=== PATIENT | female | born 1930 | race Caucasian/White ===

== ENCOUNTER 2016-08-10 14:05 | Emergency (ER) | payer MEDICARE ==
[2016-08-10] MEDS ORDERED: LOVASTATIN40 M2 PO (14:12)
[2016-08-10] MEDS ORDERED: NORVASC10 M2 PO (14:12)
[2016-08-10] MEDS ORDERED: OS-CAL 500+D31 EAC1 PO (14:13)
== END 2016-08-10 15:55 ==
LOC: EDMED 14:05
DX: R22.41 Localized swelling, mass and lump, right lower limb (principal); R60.0 Localized edema; I10 Essential (primary) hypertension; Z87.891 Personal history of nicotine dependence; Z79.899 Other long term (current) drug therapy